=== PATIENT | female | born 1990 | race Caucasian/White ===

== ENCOUNTER 2016-08-18 13:16 | Inpatient (IN) | payer OTHER ==
[~2016-08-18] VITALS: Ht 165.1 cm; Wt 55.4 kg
[~2016-08-18 13:16] MED LIST: EFFSR150 PO; LEVO88TA PO; QUET-205 PO
[2016-08-18] MEDS ORDERED: CALC-51 PO (13:59)
[2016-08-18] MEDS ORDERED: VENL150C56 PO (13:59)
[2016-08-18] MEDS ORDERED: CHOL1000 PO (13:59)
[2016-08-18] MEDS ORDERED: LEVO112T4 PO (13:59)
[2016-08-18] MEDS ORDERED: QUET1TAB34 PO (13:59)
[2016-08-18] MEDS ORDERED: VENL75CA PO (13:59)
[2016-08-18 14:00] LABS: BASO % 0.7 %; BASO ABS # 0.07 K/uL (0-0.2); COMPLETE YES; EOS % 0.3 %; HEMATOCRIT 39.1 % (37-47); IG% 0.2 %; LYMPH % 16.1 %; LYMPH ABS # 1.51 K/uL (1.2-3.4); MEAN CELL VOLUME 91.1 fL (80-100); MEAN CORPUSCULAR HEMOGLOBIN 31.2 pg (25-34); MEAN CORPUSCULAR HGB CONC 34.3 g/dl (32-36); MEAN PLATELET VOLUME 10.2 fL (7.4-10.4); MONO % 7.8 %; NEUT % 74.9 %; PLATELET COUNT 244 K/uL (130-400); RED BLOOD COUNT 4.29 M/uL (4.2-5.4); WHITE BLOOD COUNT 9.36 K/uL (4.8-10.8)
[2016-08-18 14:00] LABS: URINE APPEARANCE CLEAR (CLEAR); URINE BILIRUBIN NEG (NEG); URINE COLOR DK YELLOW; URINE EPITHELIAL CELL AUTO >30 /lpf (0-5); URINE NITRITE NEG (NEG); URINE PH 6.5 (4.5-7.5); URINE SPECIFIC GRAVITY 1.025 (1.000-1.030); UROBILINOGEN NEG (NEG)
[2016-08-18 14:05] LABS: MANUAL MICROSCOPIC REQUIRED? NO; REVIEW REQ? YES
[2016-08-18 14:21] LABS: BENZODIAZEPINE, URINE NEG (NEG); COCAINE,URINE NEG (NEG); PHENCYCLIDINE, URINE NEG (NEG)
[2016-08-18 14:22] LABS: CALCIUM 7.2 mg/dl (8.5-10.1); CREATININE 0.72 mg/dl (0.60-1.20); POTASSIUM 3.4 mmol/L (3.5-5.1)
[2016-08-18 14:32] LABS: THYROID STIMULATING HORMONE 0.372 uIu/ml (0.300-4.500)
--- NOTE | 2016-08-18 14:54 | EMERGENCY ROOM VISIT NOTE ---
History Report prepared by Stephanie: Wilma Fung Under the Supervision of: Dr. Anderson Flores D.O. First contact with patient: 13:21 Chief Complaint: ANXIETY Stated Complaint: ANXIETY, DEPRESSED History of Present Illness The patient is a 26 year old female who presents to the Emergency Room with complaints of worsening anxiety that started one month ago. The patient states that she has a history of anxiety, PTSD, and depression. She states that she is struggling with both anxiety and depression right now and thinks that she needs her medications to be changed. She is currently on Seroquel and Effexor. She states that the Effexor causes her to have vivid nightmares. The patient has been on Effexor for about 5 years now. The patient states that she isn't able to get in to see her doctor until next Thursday. She has been experiencing thoughts of self-harm, but she does not have a plan. She states that she feels like if she it would be easier, but she does not think that she would actually commit suicide. The patient has experienced these symptoms in the past and she has also been admitted to the hospital previously for these symptoms. She states that she attempted to harm herself years ago. The patient denies any auditory or visual hallucinations as well as homicidal ideations. She follows with Dr. Jacobson - [facility] for her psychiatric issues because there is a problem between psychiatrists and her insurance. The patient states that she has been experiencing generalized body aches because she is constantly laying down. 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 The neck, shoulder, and back pain are all worse when she moves and they all started a few weeks ago. She states that the pain makes her more depressed. The patient denies any recent trauma that could be causing her pain. She adds that she experiences diarrhea with panic attacks. The patient also states that she is dizzy because she has been unable to eat. Pt denies headache, change in vision, fevers, chest pain, shortness of breath, nausea, vomiting, abdominal pain, and pain with urination. The patient's last normal menstrual period was 3.5 weeks ago. Source of History: patient Onset: one month ago Position: other (global) Quality: other (anxiety) Timing: worsening Associated Symptoms: + back pain, + diarrhea, + neck pain, No SOB, No abdominal pain, No chest pain, No fevers, No headache, No nausea, No urinary symptoms (pain with urination), No vomiting Note: shoulder pain, generalized body aches, dizziness, no auditory or visual hallucinations, no homicidal ideations, no change in vision Review of Systems See HPI for pertinent positives & negatives. A total of 10 systems reviewed and were otherwise negative. Past Medical & Surgical Medical Problems: (1) HTN (hypertension) (2) Schizoaffective disorder Surgical Problems: (1) Status post removal of thyroid nodule Family History Diabetes mellitus FH: cancer FH: gallbladder disease Hypertension Social History Smoking Status: Current Every Day Smoker Alcohol Use: none Housing Status: lives with family Occupation Status: employed Current/Historical Medications Scheduled Calcium Carbonate-Vitamin D (Calcium), 1 TAB PO TID Cholecalciferol (Vitamin D3), 1,000 UNITS PO DAILY Levothyroxine Sodium (Levothyroxine Sodium), 112 MCG PO DAILY Quetiapine Fumarate (Seroquel), 100 MG PO HS Venlafaxine Hcl (Effexor Extended Rel), 150 MG PO DAILY Venlafaxine Hcl (Effexor Xr), 75 MG PO DAILY Allergies Coded Allergies: Sulfa Drugs (Verified Allergy, SWELLING & FLUSHING, 08/27/11) Physical Exam Vital Signs Date Time Temp Pulse Resp B/P Pulse Ox O2 Delivery O2 Flow Rate FiO2 08/18/16 15:00 78 16 118/79 97 Room Air 08/18/16 13:18 36.8 110 18 127/80 98 Room Air Physical Exam GENERAL: alert, sitting up in bed, well appearing, well nourished, no acute distress, non-toxic EYE EXAM: normal conjunctiva OROPHARYNX: no exudate, no erythema, lips, buccal mucosa, and tongue normal and mucous membranes are moist NECK: supple, no nuchal rigidity, no adenopathy, non-tender LUNGS: Clear to auscultation. Normal chest wall mechanics HEART: Tachycardic, no murmurs, S1 normal and S2 normal ABDOMEN: abdomen soft, non-tender, normo-active bowel sounds, no masses, no rebound or guarding. BACK: Back is symmetrical on inspection and there is no deformity, reproducible tenderness in the lower cervical/upper thoracic paraspinal region, no midline tenderness, no CVA tenderness. SKIN: no rashes and no bruising UPPER EXTREMITIES: upper extremities are grossly normal. LOWER EXTREMITIES: No pitting edema. NEURO EXAM: Normal sensorium, cranial nerves II-XII grossly intact, normal speech, no gross weakness of arms, no gross weakness of legs. PSYCH: Denies suicidal plan, denies homicidal ideations, denies auditory and visual hallucinations. Medical Decision & Procedures Laboratory Results 08/18/16 13:45 Red Blood Count 4.29, Mean Corpuscular Volume 91.1, Mean Corpuscular Hemoglobin 31.2, Mean Corpuscular Hemoglobin Concent 34.3, Mean Platelet Volume 10.2, Neutrophils (%) (Auto) 74.9, Lymphocytes (%) (Auto) 16.1, Monocytes (%) (Auto) 7.8, Eosinophils (%) (Auto) 0.3, Basophils (%) (Auto) 0.7, Neutrophils # (Auto) 7.00, Lymphocytes # (Auto) 1.51, Monocytes # (Auto) 0.73, Eosinophils # (Auto) 0.03, Basophils # (Auto) 0.07 08/18/16 13:45 Test 08/18/16 13:34 08/18/16 13:45 Urine Color DK YELLOW Urine Appearance CLEAR (CLEAR) Urine pH 6.5 (4.5-7.5) Urine Specific [place] 1.025 (1.000-1.030) Urine Protein NEG (NEG) Urine Glucose (UA) NEG (NEG) Urine Ketones 3+ (NEG) Urine Occult Blood NEG (NEG) Urine Nitrite NEG (NEG) Urine Bilirubin NEG (NEG) Urine Urobilinogen NEG (NEG) Urine Leukocyte Esterase SMALL (NEG) Urine WBC (Auto) 5-10 /hpf (0-5) Urine RBC (Auto) 0-4 /hpf (0-4) Urine Hyaline Casts (Auto) 5-10 /lpf (0-5) Urine Epithelial Cells (Auto) >30 /lpf (0-5) Urine Bacteria (Auto) 1+ (NEG) Urine Opiates Screen NEG (NEG) Urine Methadone, Qualitative NEG (NEG) Urine Barbiturates NEG (NEG) Urine Phencyclidine (PCP) Level NEG (NEG) Ur Amphetamine/Methamphetamine NEG (NEG) MDMA (Ecstasy) Screen NEG (NEG) Urine Benzodiazepines Screen NEG (NEG) Urine Cocaine Metabolite NEG (NEG) Urine Marijuana (THC) NEG (NEG) White Blood Count 9.36 K/uL (4.8-10.8) Red Blood Count 4.29 M/uL (4.2-5.4) Hemoglobin 13.4 g/dL (12.0-16.0) Hematocrit 39.1 % (37-47) Mean Corpuscular Volume 91.1 fL (80-100) Mean Corpuscular Hemoglobin 31.2 pg (25-34) Mean Corpuscular Hemoglobin Concent 34.3 g/dl (32-36) Platelet Count 244 K/uL (130-400) Mean Platelet Volume 10.2 fL (7.4-10.4) Neutrophils (%) (Auto) 74.9 % Lymphocytes (%) (Auto) 16.1 % Monocytes (%) (Auto) 7.8 % Eosinophils (%) (Auto) 0.3 % Basophils (%) (Auto) 0.7 % Neutrophils # (Auto) 7.00 K/uL (1.4-6.5) Lymphocytes # (Auto) 1.51 K/uL (1.2-3.4) Monocytes # (Auto) 0.73 K/uL (0.11-0.59) Eosinophils # (Auto) 0.03 K/uL (0-0.5) Basophils # (Auto) 0.07 K/uL (0-0.2) RDW Standard Deviation 41.2 fL (36.4-46.3) RDW Coefficient of Variation 12.4 % (11.5-14.5) Immature Granulocyte % (Auto) 0.2 % Immature Granulocyte # (Auto) 0.02 K/uL (0.00-0.02) Anion Gap 9.0 mmol/L (3-11) Est Creatinine Clear Calc Drug Dose 103.4 ml/min Estimated GFR () 133.0 Estimated GFR (Non- 114.8 BUN/Creatinine Ratio 10.0 (10-20) Calcium Level 7.2 mg/dl (8.5-10.1) Total Bilirubin 0.5 mg/dl (0.2-1) Direct Bilirubin 0.1 mg/dl (0-0.2) Aspartate Amino Transf (AST/SGOT) 14 U/L (15-37) Alanine Aminotransferase (ALT/SGPT) 19 U/L (12-78) Alkaline Phosphatase 54 U/L (45-117) Total Protein 7.4 gm/dl (6.4-8.2) Albumin 4.6 gm/dl (3.4-5.0) Thyroid Stimulating Hormone (TSH) 0.372 uIu/ml (0.300-4.500) Ethyl Alcohol mg/dL < 3.0 mg/dl (0-3) Laboratory results per my review. ED Course ED COURSE: Vital signs were reviewed and showed tachycardia. The patients medical record was reviewed The above diagnostic studies were performed and reviewed. ED treatments and interventions as stated above. 1324: The patient was evaluated in room A7. A complete history and physical examination was performed. 1439: The patient is being evaluated by 3 Andrea for admission. Medical Decision Differential diagnoses includes but is not limited to mood disorder, infection, hypoglycemia, electrolyte abnormalities, cardiac sources, intracerebral event, toxicologic, neurologic. Patient is a 26-year-old female who presents the ER for severe depression and anxiety. She notes that this has been worsening over the past couple days. She has had thoughts of wanting to harm herself but no clear plan at this time. She denies any homicidal ideations. No auditory or visual hallucinations. She does admit that she has been very anxious and this in combination with her depression has been worsening her symptoms. She missed taking Seroquel and Effexor. She has not missed any doses. She has been admitted in the past previously for suicidal ideations. Patient is agreeable to come in was evaluated by Natasha from our psychiatric care management team. She recommends inpatient treatment for which I agree. CBC along with BMP, LFTs and TSH were unremarkable. UA was contaminated with multiple epithelial cells. Will not treat at this time. Patient will be evaluated by 3 S. and likely admitted for further workup of her depression and anxiety. Impression Primary Impression: Mood disorder Additional Impression: Depression Scribe Attestation The scribe's documentation has been prepared under my direction and personally reviewed by me in its entirety. I confirm that the note above accurately reflects all work, treatment, procedures, and medical decision making performed by me. Departure Information Dispostion [facility] ([facility]) Referrals Aftab Jacobson M.D. (PCP) Patient Instructions [facility] Problem Qualifiers Additional Impression: Depression Depression Type: unspecified Qualified Codes: F32.9 - Major depressive disorder, single episode, unspecified
[2016-08-18] MEDS ORDERED: CALC500C70 PO (16:24)
[2016-08-18] MEDS ORDERED: SODIUM CHLORIDE 0.65% NA SOLN 45 ML (OCEAN) PRN (16:45)
[2016-08-18] MEDS ORDERED: ALUMINUM/MAGNESIUM SUSP 30 ML UDC PO PRN (16:45)
[2016-08-18] MEDS ORDERED: ACETAMINOPHEN 325 MG TAB PO PRN (16:45)
[2016-08-18] MEDS ORDERED: MAGNESIUM HYDROXIDE SUSP 30 ML UDC PO PRN (16:45)
[2016-08-18] MEDS ORDERED: BISMUTH SUBSALICYLATE PER ML OMNICELL CHARGE PO PRN (16:45)
[2016-08-18] MEDS ORDERED: hydrOXYzine HCL 25 MG TAB PO PRN ×2 (16:45)
[2016-08-18 16:55] VITALS: O2SAT 97
[2016-08-18] MEDS ORDERED: NICOTINE POLACRILEX 2 MG GUM MT PRN (17:00)
[2016-08-18] MEDS ORDERED: NICOTINE 7 MG/24 HR TDSY TD PRN (17:00)
[2016-08-18 19:56] VITALS: BP 112/75; PULSE 103; TEMP 36.9; Ht 165.1 cm; Wt 55.4 kg
[2016-08-18] MEDS ORDERED: CALCIUM 600MG + VIT D 400 IU TAB PO SCH (21:00)
[2016-08-18] MEDS: QUETIAPINE FUMARATE 100 MG TAB PO SCH (22:22)
[2016-08-19 06:55] VITALS: BP_SYST 101; BP_SYST 99; BP_DIAS 65; BP_DIAS 70; PULSE 79; PULSE 87; TEMP 36.8
[2016-08-19] MEDS: LEVOTHYROXINE 112 MCG TAB PO SCH (08:42)
[2016-08-19] MEDS ORDERED: VENLAFAXINE HCL XR 150 MG CAPXR PO SCH (09:00)
[2016-08-19] MEDS ORDERED: VENLAFAXINE HCL XR 75 MG CAPXR PO SCH ×2 (09:00→12:00)
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
[2016-08-19] MEDS: CALCIUM 600MG + VIT D 400 IU TAB PO SCH ×3 (11:42→23:01)
[2016-08-19] MEDS: VENLAFAXINE HCL XR 150 MG CAPXR PO SCH (11:43)
[2016-08-19] MEDS ORDERED: QUETIAPINE FUMARATE 25 MG TAB PO PRN (11:45)
[2016-08-19] MEDS: ESCITALOPRAM OXALATE 10 MG TAB PO SCH (23:01)
[2016-08-19] MEDS: QUETIAPINE FUMARATE 100 MG TAB PO SCH (23:01)
[2016-08-20 06:59] VITALS: BP_SYST 104; BP_SYST 119; BP_DIAS 71; BP_DIAS 84; PULSE 92; PULSE 97; TEMP 36.6
[2016-08-20] MEDS: LEVOTHYROXINE 112 MCG TAB PO SCH (08:26)
[2016-08-20 09:00] LABS: CHOLESTEROL/HDL RATIO 3.1
[2016-08-20] MEDS: CALCIUM 600MG + VIT D 400 IU TAB PO SCH ×3 (11:53→20:46)
[2016-08-20] MEDS: VENLAFAXINE HCL XR 150 MG CAPXR PO SCH (11:53)
--- NOTE | 2016-08-20 12:32 | Psychiatric Progress Notes ---
Progress Note Date of Service August 20, 2016. Interval History Ayana Nails is a 26-year-old female who currently lives in [place] with her boyfriend and his parents, has a history of schizoaffective disorder bipolar type, anxiety not otherwise specified, and dissociative disorder, and presented to the emergency room with worsening mood, anxiety, and suicidal ideation and was admitted voluntarily. Chief Complaint "Better". Subjective Patient was seen & assessed interval progress reviewed with Treatment Team. Staff report she is adjusting to the unit, going to groups, and participating appropriately. She says she is feeling better than on admission, feels more optimistic, is trying to "take everything a day at a time, deal with things as they come, try not to anticipate it and then have a panic attack." She says anxiety is her primary problem, and her mood got depressed because of how bad her anxiety was. 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 She denies any problems with the dose decrease to her Effexor, but remains very anxious about tapering off it, wanting to do a very slow taper. She slept well, and reports good appetite. Denies side effects to meds. Sleep Information Total Hours of Sleep: 6.50 Meal Information Percent of Breakfast Consumed: 100 Percent of Lunch Consumed: 90 Percent of Dinner Consumed: 100 Mental Status Exam During interview pt is: alert and oriented, cooperative Appearance: appropriately dressed, appropriately groomed, appeared stated age, other (thin) Eye contact is: good Motor behavior is: steady gait & station, no abnormal motor movements Speech: normal in rate, rhythm & volume Affect: mood congruent, other (depressed and anxious, but improved from yesterday, less intense) Mood is: other ("better") Thought process: goal directed Thought content: reality based without delusions Suicidal thought are: denied Homicidal thoughts are: denied Hallucinations: denies auditory, denies visual Cognition: memory grossly intact, attention grossly intact, language grossly intact Intelligence estimated to be: average Insight: fair Judgement: fair Impression 26-year-old female with a history of schizoaffective disorder bipolar type, dissociative disorder, cannabis and abuse, and anxiety disorder who presents with worsening anxiety and mood resulting in suicidal ideation. She is admitted voluntarily. She would benefit from medication adjustments and exploring whether her thyroid medication may be playing a role in increased anxiety and panic. Diagnoses have been reviewed, and she appears to meet criteria for MDD, panic and RUBIN at this time. We are switching to another antidepressant as her current medication has not been effective recently. She would also benefit from outpatient follow-up with a psychiatrist, and increasing her therapy sessions to at least weekly. Plan (1) Panic disorder - Discuss treatment options for addressing anxiety and depression, including increasing venlafaxine XR to 300 mg daily, cross tapering to a different antidepressant, or augmentation. She opted for a cross taper to escitalopram, which she has never tried before. She is very anxious about coming off of the venlafaxine XR, and we discussed discontinuation syndrome and that we would slow the taper down if she experiences any symptoms. We will start by decreasing her dose to 150 mg daily Misty C she takes it at noon). We'll start escitalopram 5 mg daily at bedtime tonight. Reviewed the risks, benefits , and common side effects, and she agreed. - Offer quetiapine 25mg prn for panic, as well as hydroxyzine (thinks hydroxyzine was ineffective). - Coordinate with outpatient providers, including therapist and recommended increasing appointments to weekly. - Refer for outpatient psychiatrist to manage medications. - Coordinate care with Dr. Jacobson, her PCP. - Family meeting with boyfriend. - Attend groups and therapy here, work on healthy coping skills and discharge safety plan. 08/20 - Tolerating decrease in Effexor XR well and wants to stay at this dose for now , fearing discontinuation syndrome. Continue escitalopram 5mg daily, continue. - Staff contacted Dr. Jacobson yesterday to review recent labs and ? adjust dose of levothyroxine. Awaiting return call. - Family meeting with boyfriend. - Wants to return to work Thursday. - Rec increasing therapy to weekly or every other week. - Refer to outpatient psychiatrist. (2) Depression -Reviewed records, and question diagnosis of schizoaffective disorder bipolar type. Patient denies any symptoms of sun or psychosis in years, and some of the "paranoia" she had previously reported could be seen in the context of severe anxiety. In addition, she has been stable for years on venlafaxine XR without a mood stabilizer, as has only been on low-dose quetiapine, which supports a unipolar depression. -See plan above. -Continue quetiapine 100 mg daily at bedtime, and order fasting lipid profile and glucose for tomorrow morning for monitoring on an atypical antipsychotic, as she states she has not had these done in years. (3) Nicotine dependence Recognizes that smoking is worsening anxiety, and has cut back to 2 cigs/daily, and is interested in quitting. Will offer patch and gum as needed here, and can continue with OP prescription if needed. Can also refer to the quit line. (4) Hypothyroidism TSH low and per patient free T4 was high last week at PCP's office, but hasn't followed up with Dr. Jacobson yet. Will call his office to determine if levothyroxine 112mg should be decreased. This may also be contributing to anxiety. (5) Unprotected sex Patient is having unprotected sex, and does not desire to become at this time. She has not been taking oral contraceptives due to poor compliance with pills. Discussed concerns with unplanned and potential for destabilizing mood and anxiety further. We will refer her to her [employer] for discussion of other contraception options, such as the NuvaRing, implant, or Depo-Provera shot. In the interim, she should use barrier protection such as condoms. Discharge / Aftercare Planning Primary Care Physician: Name: Dr Mendez/Radha Therapist: Name: Machelle Liao Date of Appointment: August 18, 2016 Visit Code E&M Code: 60511 Inventory Assets Strengths: "I'm very caring, compassionate, and kind. Risk Factors Assessment : Yes /single/: No Higher / Fall in social status: No Health problems: Yes Mental Health Diagnoses: Yes Substance use disorders: Yes Previous attempt: Yes Previous attempt;highly lethal: No Family history of suicide: No Previous psychiatric stay: Yes Hopelessness: Yes Smoker: Yes Protective Factors Assessment Gnosticism beliefs: Yes : No Responsible for young children: No Employed: Yes Stable relationships: Yes Supportive family: Yes Good rapport with provider: Yes Data Vital Signs Last 24 Hrs: Date Time Temp Pulse Resp B/P Pulse Ox O2 Delivery O2 Flow Rate FiO2 08/20/16 06:59 36.6 92 16 119/84 97 104/71 Meds Administered Last 24 Hrs: Meds Administered (Past 24Hrs) Medications (Trade) Dose Ordered Sig/Lory Route Start Time Stop Time Status Last Admin Dose Admin Calcium/Vitamin D (Caltrate Plus Tab) 1 tab TID PO 08/18/16 21:00 08/19/16 11:12 DC 08/18/16 22:22 1 TAB Levothyroxine Sodium (Synthroid Tab) 112 mcg DAILYBB PO 08/19/16 08:00 09/18/16 07:59 08/20/16 08:26 112 MCG Quetiapine Fumarate (seroQUEL TAB) 100 mg HS PO 08/18/16 21:00 09/17/16 20:59 08/19/16 23:01 100 MG Venlafaxine HCl (effeXOR EXTENDED REL CAP) 150 mg DAILY@1200 PO 08/19/16 12:00 09/18/16 11:59 08/20/16 11:53 150 MG Calcium/Vitamin D (Caltrate Plus Tab) 1 tab TID@1200,1600,2100 PO 08/19/16 12:00 09/18/16 11:59 08/20/16 11:53 1 TAB Escitalopram Oxalate (Lexapro Tab) 5 mg HS PO 08/19/16 22:00 09/18/16 21:59 08/19/16 23:01 5 MG Lab Results Last 24 Hrs: Last 24 Hours Test 08/20/16 08:20 Fasting Glucose 92 mg/dl Triglycerides Level 74 mg/dl Cholesterol Level 131 mg/dl HDL Cholesterol 42 mg/dl LDL Cholesterol, Calculated 74 mg/dl VLDL Cholesterol, Calculated 15 mg/dl Cholesterol/HDL Ratio 3.1 Problem Qualifiers (1) Depression: Depression Type: unspecified Qualified Codes: F32.9 - Major depressive disorder, single episode, unspecified (2) Nicotine dependence: Nicotine product type: cigarettes
--- NOTE | 2016-08-20 22:47 | Medical Student: BHU Only ---
Psychiatric Evaluation Date of Service: August 19, 2016. IDENTIFYING DATA: Ayana Nails is a 26-year-old female who currently lives in [place], [place] with her boyfriend and his family. Ayana Nails was admitted to the [facility] on a 201 voluntary commitment. CHIEF COMPLAINT: "I thought about driving into a tree." HISTORY OF PRESENT ILLNESS: Ayana Nails is a 26-year-old female with a history of anxiety and depression who presents to the hospital with increasing anxiety and suicidal ideation. She decided coming to the Emergency Room after she had thoughts of driving her car into a tree and because her symptoms of depression and panic attacks were getting in the way of daily life. Ms. 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 She also reported having daily nightmares that are vivid and very scary for her. She said that when she wakes up, it's hard for her to decipher what's real. In addition, Ms. Nails became tearful when she said that " everything scares me." When asked about triggers, she described how a tree falling and nearly hitting her house terrified her. She said she didn't understand how that didn't affect the other people in her home the same way it affected her. She also becomes extremely anxious when thinking about traveling and watching the news, especially when discussing the president. These panic attacks last about 20 minutes and have gotten in the way of her daily life; she said that she wasn't able to spend Easter dinner with her family because she was having a panic attack. When having an attack, Ms. Nails describes feeling dizzy/light-headed, feels that reality isn't real, and feels like she is dying and might have to come to the hospital. These have been happening almost every day, and after each episode, she says that she will have diarrhea and be very fatigued. These episodes began about 3 years ago after her thyroid surgery, but have increased in frequency over the last month. She says she is always nervous about having another attack and that her boyfriend doesn't understand them. However, these attacks have not prohibited her from driving or doing her regular shopping. She denied feelings of paranoia but endorsed fearfulness in general. These feelings escalated to her having thoughts of driving her car into a tree yesterday on the way to meeting with her therapist. While she does have a history of self harm (cutting herself as a "pain reliever") about 5-6 years ago, she said that she would never take her own life and has not engaged in self-harm recently. She said that while she does enjoy her family, boyfriend , cat, and occupation, it has been "harder to enjoy those things right now." Ms. Nails also said that she has lost about 5 pounds over the last month, has decreased appetite, and has decreased her cigarette smoking down to 2 cigarettes per day because she has found that smoking increases her heart rate which scares her because she expects and impending panic attack. Ms. Nails became very upset and tearful again when she said that she was disappointed to be back in the hospital again because she had been doing so well for a few years until now. Risk of violence to self within the last 6 months: no Risk of violence to others within the last 6 months: no CURRENT MEDICATIONS: Home Meds and Scripts Medications Dose Route/Sig Max Daily Dose Days Date Category Os-Deven 500 Plus D (Calcium/Vitamin D) Tab 1 Tab PO TID 08/18/16 Reported Effexor Xr (Venlafaxine Hcl) 75 Mg Cap 75 Mg PO DAILY 08/18/16 Reported Effexor Extended Rel (Venlafaxine Hcl) 150 Mg Cap 150 Mg PO DAILY 08/18/16 Reported Seroquel (Quetiapine Fumarate) 100 Mg Tab 100 Mg PO HS 08/18/16 Reported Levothyroxine Sodium 112 Mcg Tab 112 Mcg PO DAILY 08/18/16 Reported PAST PSYCHIATRIC HISTORY: Current outpatient mental health treatment: Dr. Jacobson (PCP), Machelle Liao ( therapist). Pt said she sees her PCP for psychiatric care because her insurance doesn't cover "good" psychiatric providers. Prior outpatient mental health treatment: Dr. Rubio, Dr. Epstein Past diagnoses: schizoaffective disorder bipolar type, dissociative disorder, anxiety not otherwise specified. Prior psychiatric hospitalizations: [facility] on 3 occasions, [facility] on 4 occasions Prior medication trials: many med trials but does not recall specific responses. Prior suicide attempts: yes Access to weapons: boyfriend has guns in the home, but pt claims to not know where he keeps them PAST MEDICAL HISTORY: Current primary care practitioner is Dr. Jacobson. medical history: HTN, hyperthyroidism surgical history: thyroidectomy in 2014 LMP: 3.5 weeks ago history of head injury: unknown history of seizure: unknown history of iv drug use: no ALLERGIES: sulfa antibiotics FAMILY HISTORY: Mental Health: depression in mother, father, brother, and sister. Substance Abuse: father; alcoholism Suicide: no Medical history: gallbladder disease, cancer, diabetes mellitus SUBSTANCE USE HISTORY: Tobacco use hx: currently smokes 2 cigarettes per day, but was smoking 1/2 pack per day for years prior. Has cut down because smoking makes her even more anxious. Caffeine use hx: unknown Used to smoke marijuana every day "all day long" before her first panic attack. Has not smoked marijuana since then. Pt reports feeling 'mental withdrawal' after cessation. PERSONAL HISTORY: Living: Patient currently lives in [place], [place] with her boyfriend and his family. She reported having poor relationship with her father years ago which was aggressive, but is now on good terms with him. 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 CARDIOVASCULAR: heart racing PSYCHIATRIC: anxious, disappointed in herself Labs, studies, imaging: Test 08/18/16 13:34 08/18/16 13:45 08/20/16 08:20 Urine Color DK YELLOW Urine Appearance CLEAR Urine pH 6.5 Urine Specific [place] 1.025 Urine Protein NEG Urine Glucose (UA) NEG Urine Ketones 3+ Urine Occult Blood NEG Urine Nitrite NEG Urine Bilirubin NEG Urine Urobilinogen NEG Urine Leukocyte Esterase SMALL Urine WBC (Auto) 5-10 Urine RBC (Auto) 0-4 Urine Hyaline Casts (Auto) 5-10 Urine Epithelial Cells (Auto) >30 Urine Bacteria (Auto) 1+ Urine Opiates Screen NEG Urine Methadone, Qualitative NEG Urine Barbiturates NEG Urine Phencyclidine (PCP) Level NEG Ur Amphetamine/Methamphetamine NEG MDMA (Ecstasy) Screen NEG Urine Benzodiazepines Screen NEG Urine Cocaine Metabolite NEG Urine Marijuana (THC) NEG White Blood Count 9.36 Red Blood Count 4.29 Hemoglobin 13.4 Hematocrit 39.1 Mean Corpuscular Volume 91.1 Mean Corpuscular Hemoglobin 31.2 Mean Corpuscular Hemoglobin Concent 34.3 Platelet Count 244 Mean Platelet Volume 10.2 Neutrophils (%) (Auto) 74.9 Lymphocytes (%) (Auto) 16.1 Monocytes (%) (Auto) 7.8 Eosinophils (%) (Auto) 0.3 Basophils (%) (Auto) 0.7 Neutrophils # (Auto) 7.00 Lymphocytes # (Auto) 1.51 Monocytes # (Auto) 0.73 Eosinophils # (Auto) 0.03 Basophils # (Auto) 0.07 RDW Standard Deviation 41.2 RDW Coefficient of Variation 12.4 Immature Granulocyte % (Auto) 0.2 Immature Granulocyte # (Auto) 0.02 Urine Test NEG Sodium Level 141 Potassium Level 3.4 Chloride Level 107 Carbon Dioxide Level 25 Anion Gap 9.0 Blood Urea Nitrogen 7 Creatinine 0.72 Est Creatinine Clear Calc Drug Dose 103.4 Estimated GFR () 133.0 Estimated GFR (Non- 114.8 BUN/Creatinine Ratio 10.0 POC Glucose 104 Random Glucose 92 Calcium Level 7.2 Total Bilirubin 0.5 Direct Bilirubin 0.1 Aspartate Amino Transferase (AST) 14 Alanine Aminotransferase (ALT) 19 Alkaline Phosphatase 54 Total Protein 7.4 Albumin 4.6 Thyroid Stimulating Hormone (TSH) 0.372 Ethyl Alcohol mg/dL < 3.0 Fasting Glucose 92 Triglycerides Level 74 Cholesterol Level 131 HDL Cholesterol 42 LDL Cholesterol, Calculated 74 VLDL Cholesterol, Calculated 15 Cholesterol/HDL Ratio 3.1 PHYSICAL EXAM: MENTAL STATUS EXAM: Appearance is that of a healthy young female who is casually dressed. Eye contact is appropriate. She is cooperative and pleasant but cries at times. Motor behavior is grossly normal. Speech: normal rate, rhythm, and volume. No abnormal intonation. Mood: anxious Affect: congruently dysthymic. labile. Thought process: Linear, logical, and goal-directed. No perseverations. Thought content: Denies current SI, HI, or obsessions. Fearful of "everything." Perception: Denied hallucinations. No evidence of delusions. Cognition: Patient is alert and oriented to person, place, and time. Memory intact. Insight and judgment are fair. INVENTORY OF ASSETS: * strengths: "caring, compassionate, loving." "tries to be her best self." "usually funny and have a good personality." Described how her mental health problems have made her more compassionate because you "never know what someone is going through." * resources: boyfriend, boyfriend's family, pt's own family. * needs: Learn how to better control and cope with panic attacks. RISK ASSESSMENT: * Risk factors: , Health Problems, Mental Health Diagnoses ( depression and anxiety), Substance Use Disorders (tobacco), Previous attempts, Previous psychiatric hospitalization. * Protective factors: Employed, Stable relationships, Supportive family. DIAGNOSTIC IMPRESSION: This is a 26-year-old female with a diagnosis of anxiety and depression who presents to the hospital with worsening of her symptoms and suicidal ideation. Because of her lab results, hyperthyroidism secondary to levothyroxine is a possible etiology and should be explored appropriately. The most likely diagnosis is Panic Disorder with 4+ of the required symptoms including palpitations, dizziness, abdominal distress, derealization, and fear of dying with constant worry about another attack and avoidance behaviors. The Panic Disorder appears to co-occur with major depressive disorder. Features of MDD in this patient include depressed mood for greater than 2 weeks with poor appetite , fatigue, and poor concentration. The patient believes that depression is secondary to the inability to control her panic attacks. RECOMMENDATIONS: 1. Panic Disorder & Depression - Patient will attend all groups and attend therapeutic programming. Q15 checks for her safety by nursing. Patient may have roommate. - We discussed the option of performing a cross taper of Venlafaxine to Escitalopram to see if this can better control her anxiety. The patient was very fearful of this and began crying at the thought of going off of Venlafaxine , but ultimately agreed. - Introduce Escitalopram at 5 mg PO daily for 7 days before increasing to 10 mg daily. - Continue Venlafaxine XR 150 mg PO daily. D/C Venlafaxine 75 mg PO daily. - Continue Quetiapine according to current regimen. - Provide Hydroxyzine at 50 mg PO PRN for panic attacks. - Connect patient with psychiatric outpatient care as her symptoms appear to be too complex to be managed by a PCP. 2. Hypothyroidism - Decreased TSH was reviewed with patient. It was explained that this could mean that her thyroid is overactive which may lead to a decrease in her current dose of 112 mcg of levothyroxine daily. - Will contact her PCP, Dr. Jacobson, to review patient's most recent lab results which showed an increased free T4 level. Will solicit his judgment on possibly decreasing her current dose to potentially mitigate her anxiety. - 1899 - Dr. Jacobson returned my phone call, and I updated him on the status of our patient. He said he would review the patient's labs and contact the unit to discuss further.
[2016-08-20] MEDS: ESCITALOPRAM OXALATE 10 MG TAB PO SCH (22:57)
[2016-08-20] MEDS: QUETIAPINE FUMARATE 100 MG TAB PO SCH (22:57)
[2016-08-21 07:04] VITALS: BP_SYST 100; BP_SYST 94; BP_DIAS 67; BP_DIAS 68; PULSE 76; PULSE 82; TEMP 36.8
[2016-08-21] MEDS: LEVOTHYROXINE 112 MCG TAB PO SCH (08:08)
--- NOTE | 2016-08-21 10:48 | Psychiatric Progress Notes ---
Progress Note Date of Service August 21, 2016. Interval History Ayana Nails is a 26-year-old female who currently lives in [place] with her boyfriend and his parents, has a history of schizoaffective disorder bipolar type, anxiety not otherwise specified, and dissociative disorder, and presented to the emergency room with worsening mood, anxiety, and suicidal ideation and was admitted voluntarily. Chief Complaint "Pretty good". Subjective Patient was seen & assessed interval progress reviewed. She is going to groups and participating in treatment. She had a family meeting with her boyfriend yesterday, and they reviewed information about panic disorder and how it affects the patient. He agreed to secure guns so that she would not have access to them. Today, the patient states that her mood has improved since admission, but she continues to have a lot of anxiety, which is worse in the morning. She feels better after she gets out of bed and goes to group. She continues to have vivid dreams at night, which bother her, but is sleeping through the night. She feels tired this morning. She is agreeable to decreasing her venlafaxine XR dose again today, and would like instructions for how to continue the cross taper after she leaves the hospital. She would also like a prescription for hydroxyzine as needed for anxiety at the time of discharge, stating that she thinks she will feel better just knowing she has something to take if needed. She is hoping to be ready to be discharged over the weekend, noting that she is very anxious thinking about going home, and worries that she will get better but that the suicidal thoughts will return. She asks multiple appropriate questions about indications, how long it will take to see improvements, and ways to manage her anxiety. Sleep Information Total Hours of Sleep: 7.00 Meal Information Percent of Breakfast Consumed: 100 Percent of Lunch Consumed: 100 Percent of Dinner Consumed: 100 Mental Status Exam During interview pt is: alert and oriented, cooperative Appearance: appropriately dressed, appropriately groomed, appeared stated age Eye contact is: good Motor behavior is: steady gait & station, no abnormal motor movements Speech: normal in rate, rhythm & volume Affect: mood congruent, tearful (although duration is shorter than previously and her stay), other (depressed and anxious, but improving) Mood is: other ("pretty good") Thought process: goal directed Thought content: reality based without delusions Suicidal thought are: denied Homicidal thoughts are: denied Hallucinations: denies auditory, denies visual Cognition: memory grossly intact, attention grossly intact, language grossly intact Intelligence estimated to be: average Insight: fair Judgement: fair Impression 26-year-old female with a history of schizoaffective disorder bipolar type, dissociative disorder, cannabis and abuse, and anxiety disorder who presents with worsening anxiety and mood resulting in suicidal ideation. She is admitted voluntarily. She would benefit from medication adjustments and exploring whether her thyroid medication may be playing a role in increased anxiety and panic. Diagnoses have been reviewed, and she appears to meet criteria for MDD, panic and RUBIN at this time. We are switching to another antidepressant as her current medication has not been effective recently. She would also benefit from outpatient follow-up with a psychiatrist, and increasing her therapy sessions to at least weekly. Plan (1) Panic disorder - Discuss treatment options for addressing anxiety and depression, including increasing venlafaxine XR to 300 mg daily, cross tapering to a different antidepressant, or augmentation. She opted for a cross taper to escitalopram, which she has never tried before. She is very anxious about coming off of the venlafaxine XR, and we discussed discontinuation syndrome and that we would slow the taper down if she experiences any symptoms. We will start by decreasing her dose to 150 mg daily Misty C she takes it at noon). We'll start escitalopram 5 mg daily at bedtime tonight. Reviewed the risks, benefits , and common side effects, and she agreed. - Offer quetiapine 25mg prn for panic, as well as hydroxyzine (thinks hydroxyzine was ineffective). - Coordinate with outpatient providers, including therapist and recommended increasing appointments to weekly. - Refer for outpatient psychiatrist to manage medications. - Coordinate care with Dr. Jacobson, her PCP. - Family meeting with boyfriend. - Attend groups and therapy here, work on healthy coping skills and discharge safety plan. 08/20 - Tolerating decrease in Effexor XR well and wants to stay at this dose for now , fearing discontinuation syndrome. Continue escitalopram 5mg daily, continue. - Staff contacted Dr. Jacobson yesterday to review recent labs and ? adjust dose of levothyroxine. Awaiting return call. - Family meeting with boyfriend. - Wants to return to work Thursday. - Rec increasing therapy to weekly or every other week. - Refer to outpatient psychiatrist. 08/21 - Continue cross taper, by decreasing venlafaxine XR to 112.5 mg daily, and increasing escitalopram to 10 mg daily at bedtime. She would like instructions to continue this cross taper after discharge, and would also like a prescription for hydroxyzine as needed for anxiety at discharge. - Referred to Dr. Baires for medication management, and will follow-up with therapist, Machelle Liao. (2) Depression -Reviewed records, and question diagnosis of schizoaffective disorder bipolar type. Patient denies any symptoms of sun or psychosis in years, and some of the "paranoia" she had previously reported could be seen in the context of severe anxiety. In addition, she has been stable for years on venlafaxine XR without a mood stabilizer, as has only been on low-dose quetiapine, which supports a unipolar depression. -See plan above. -Continue quetiapine 100 mg daily at bedtime, and order fasting lipid profile and glucose for tomorrow morning for monitoring on an atypical antipsychotic, as she states she has not had these done in years. (3) Nicotine dependence Recognizes that smoking is worsening anxiety, and has cut back to 2 cigs/daily, and is interested in quitting. Will offer patch and gum as needed here, and can continue with OP prescription if needed. Can also refer to the quit line. (4) Hypothyroidism TSH low and per patient free T4 was high last week at PCP's office, but hasn't followed up with Dr. Jacobson yet. Will call his office to determine if levothyroxine 112mg should be decreased. This may also be contributing to anxiety. (5) Unprotected sex Patient is having unprotected sex, and does not desire to become at this time. She has not been taking oral contraceptives due to poor compliance with pills. Discussed concerns with unplanned and potential for destabilizing mood and anxiety further. We will refer her to her TOYS INSPECTOR for discussion of other contraception options, such as the NuvaRing, implant, or Depo-Provera shot. In the interim, she should use barrier protection such as condoms. Discharge / Aftercare Planning Primary Care Physician: Name: Dr Mendez/Radha Therapist: Name: Machelle Liao Date of Appointment: August 18, 2016 Visit Code E&M Code: 97880 Inventory Assets Strengths: "I'm very caring, compassionate, and kind. Risk Factors Assessment : Yes /single/: No Higher / Fall in social status: No Health problems: Yes Mental Health Diagnoses: Yes Substance use disorders: Yes Previous attempt: Yes Previous attempt;highly lethal: No Family history of suicide: No Previous psychiatric stay: Yes Hopelessness: Yes Smoker: Yes Protective Factors Assessment Ep[employer]opalian beliefs: Yes : No Responsible for young children: No Employed: Yes Stable relationships: Yes Supportive family: Yes Good rapport with provider: Yes Data Vital Signs Last 24 Hrs: Date Time Temp Pulse Resp B/P Pulse Ox O2 Delivery O2 Flow Rate FiO2 08/21/16 07:04 36.8 82 14 94/68 76 100/67 Meds Administered Last 24 Hrs: Meds Administered (Past 24Hrs) Medications (Trade) Dose Ordered Sig/Lory Route Start Time Stop Time Status Last Admin Dose Admin Venlafaxine HCl (effeXOR EXTENDED REL CAP) 150 mg DAILY@1200 PO 08/19/16 12:00 08/21/16 10:19 DC 08/20/16 11:53 150 MG Calcium/Vitamin D (Caltrate Plus Tab) 1 tab TID@1200,1600,2100 PO 08/19/16 12:00 09/18/16 11:59 08/20/16 20:46 1 TAB Escitalopram Oxalate (Lexapro Tab) 5 mg HS PO 08/19/16 22:00 08/21/16 10:19 DC 08/20/16 22:57 5 MG Problem Qualifiers (1) Depression: Depression Type: unspecified Qualified Codes: F32.9 - Major depressive disorder, single episode, unspecified (2) Nicotine dependence: Nicotine product type: cigarettes
--- NOTE | 2016-08-21 11:03 | Medical Student: BHU Only ---
Psychiatric Progress Note SUBJECTIVE: The patient was seen and assessed today, and progress was reviewed with nursing. The patient reports doing "good". Sleep was "good." Ms. Nails reports that she is doing "much better" since admission and has not had a panic attack while here on the unit. She had a meeting last night with her boyfriend, and she says this went well. Her goal is to make him more understanding of what she's going though and that she's not doing this on purpose. She said that her coworkers at the [employer] have been very supportive and sent her romero which made her happy. Ayana believes that her depression is "driven" by her anxiety, and because her anxiety has been improving, so has the depression. Her goal is to better control the attacks so that the anxiety and depression can be mitigated. Ayana acknowledged that the panic disorder can be likened to a vicious cycle: she has a panic attack which makes her anxious about having another which in turn predisposes her to panic attacks and so on. She notes that her anxiety is worse in the morning, and she is able to recognize triggers such as palpitations and heat. She said that she almost had a panic attack at her boyfriend's meeting not because of any interaction, but because the room was warm. Ayana says that because she is able to recognize these triggers, she tries to calm herself by walking around. Ayana has been doing well in activities; I saw she contributed nicely to group therapy yesterday by being open about her journey with the group. She smiles and is pleasant with the other patients on the unit. Ayana denies any side effects associated with her treatment regimen and was not tearful in her interview. ROS: Sleep: "good" but also commented on having vivid, scary dreams. They often consist of scary events near her childhood home. She says this has caused her to avoid driving down particular streets in [place] to avoid the childhood homes associated with these nightmares. Appetite: "good" MSE: Appearance is that of a casually dressed woman with disheveled hair that seems uncharacteristic for her. Eye contact and attention are appropriate. Motor behavior: No abnormal psychomotor movement. Speech: volume, rate, and tone were all normal. Mood: "good" "much better" Affect: congruently euthymic and full Thought process: Linear, logical, and goal directed. Thought content: No evidence of SI, HI, delusions, or preoccupations. Perception: No evidence of hallucinations, derealization, or delusions. Cognition: Patient is alert and oriented to person, place, and time. Memory and language grossly intact. Insight and judgment are appropriate. ASSESSMENT: Ayana Nails is a 26-year-old female with a history of anxiety and depression who was admitted to the hospital voluntarily due to suicidal ideation and panic attacks. PLAN: 1. Panic Disorder & Depression - Patient will attend all groups and attend therapeutic programming. Q15 checks for her safety by nursing. Patient may have roommate. - Continue cross taper of Venlafaxine to Escitalopram - Continue Escitalopram at 5 mg PO daily for 7 days (until August 25) before increasing to 10 mg daily. - Continue Venlafaxine XR 150 mg PO daily. D/C Venlafaxine 75 mg PO daily. - Continue Quetiapine according to current regimen. - Provide Hydroxyzine at 50 mg PO PRN for panic attacks. - Connect patient with psychiatric outpatient care as her symptoms appear to be too complex to be managed by a PCP. 2. Hypothyroidism - Decreased TSH was reviewed with patient. It was explained that this could mean that her thyroid is overactive which may lead to a decrease in her current dose of 112 mcg of levothyroxine daily. - Will contact her PCP, Dr. Jacobson, to review patient's most recent lab results which showed an increased free T4 level. Will solicit his judgment on possibly decreasing her current dose to potentially mitigate her anxiety. - 1899August 19 - Dr. Jacobson returned my phone call, and I updated him on the status of our patient. He said he would review the patient's labs and contact the unit to discuss further. -1033August 21 - Still waiting to hear from Dr. Jacobson on how to proceed. Will contact his office again. - 1101August 21 - Called his office and left the [facility] phone number for him to call back to discuss high T4 labs from outpatient and low TSH of 0.372 from admission. Will update nursing staff to expect this call from him. Date of Service: August 21, 2016.
[2016-08-21] MEDS ORDERED: VENLAFAXINE HCL XR 150 MG CAPXR PO SCH (12:00)
[2016-08-21] MEDS: VENLAFAXINE HCL XR 75 MG CAPXR PO SCH (12:40)
[2016-08-21] MEDS: VENLAFAXINE HCL XR 37.5 MG CAPXR PO SCH (12:40)
[2016-08-21] MEDS: CALCIUM 600MG + VIT D 400 IU TAB PO SCH ×3 (12:40→21:21)
[2016-08-21] MEDS: ESCITALOPRAM OXALATE 10 MG TAB PO SCH (23:03)
[2016-08-21] MEDS: QUETIAPINE FUMARATE 100 MG TAB PO SCH (23:04)
[2016-08-22 06:54] VITALS: BP_SYST 86; BP_SYST 96; BP_DIAS 53; BP_DIAS 68; PULSE 101; PULSE 67; TEMP 36.6
[2016-08-22] MEDS: LEVOTHYROXINE 112 MCG TAB PO SCH (07:41)
[2016-08-22] MEDS: VENLAFAXINE HCL XR 75 MG CAPXR PO SCH (11:59)
[2016-08-22] MEDS: VENLAFAXINE HCL XR 37.5 MG CAPXR PO SCH (11:59)
[2016-08-22] MEDS: CALCIUM 600MG + VIT D 400 IU TAB PO SCH ×3 (11:59→22:55)
--- NOTE | 2016-08-22 13:55 | Psychiatric Progress Notes ---
Progress Note Date of Service August 22, 2016. Interval History Ayana Nails is a 26-year-old female who currently lives in [place] with her boyfriend and his parents, has a history of schizoaffective disorder bipolar type, anxiety not otherwise specified, and dissociative disorder, and presented to the emergency room with worsening mood, anxiety, and suicidal ideation and was admitted voluntarily. Chief Complaint "I am not ready to go home, I am so afraid and if I am anxious at home I can't help but want to think about being to not feel anxious". Subjective Patient was seen & assessed interval progress reviewed with Treatment Team and Jewel Inserter. The patient continues to be anxious. The feels that she may be tired due to medications as she lowers effexor XR and starts lexapro with prn hydroxyzine. Nursing reports her affect as flat. She however had a good visit with family last evening. She had lability to tears and anxiety this AM with high anxiety fearing that she will leave here, continue to have anxiety and that is when she idealizes being because it would stop the anxiety. She spent significant time with nursing staff for support and assistance and took prn hydroxyzine. Met with patient who expresses ongoing significant anxiety and lability to tears. She states she worries about everything most specifically about having a panic attack at work. She denies active SI at this time but fears that she will feel suicidal amidst significant panic and fears this will happen at home as she feels no different than when she came to the hospital. SHe is not having discontinuation sx from reduction of Effexor XR from 225mg to 112.5mg yesterday, and increase of lexapro from 5mg to 10mg last night. She is having more tiredness, we discussed this may be lexapro or the prn hydroxyzine or both. she is afraid to stay on the effexor, afraid to move to the lexapro if it is going to cause SE. SHe has a panic attack last night over this quandry. She feels lower because of her ongoing anxiety but denies feeling overtly depressed at this time. SHe denies s/sx of psychosis at this time. Review of Systems She is tired as noted above, and anxious o/w denies physical concerns. Sleep Information Total Hours of Sleep: 6.50 Meal Information Percent of Breakfast Consumed: 75 Percent of Lunch Consumed: 100 Percent of Dinner Consumed: 50 Mental Status Exam During interview pt is: alert and oriented, cooperative Appearance: appropriately dressed, appropriately groomed, appeared stated age Eye contact is: good Motor behavior is: steady gait & station, no abnormal motor movements Speech: normal in rate, rhythm & volume Affect: mood congruent, tearful (worried about panic), anxious Mood is: anxious, other Thought process: goal directed Thought content: reality based without delusions Suicidal thought are: denied Homicidal thoughts are: denied Hallucinations: denies auditory, denies visual Cognition: memory grossly intact, attention grossly intact, language grossly intact Intelligence estimated to be: average Insight: fair Judgement: fair Impression 26-year-old female with a history of schizoaffective disorder bipolar type, dissociative disorder, cannabis and abuse, and anxiety disorder who presents with worsening anxiety and mood resulting in suicidal ideation. She is admitted voluntarily. She would benefit from medication adjustments and exploring whether her thyroid medication may be playing a role in increased anxiety and panic. Diagnoses have been reviewed, and she appears to meet criteria for MDD, panic and RUBIN at this time. We are switching to another antidepressant as her current medication has not been effective recently. She would also benefit from outpatient follow-up with a psychiatrist, and increasing her therapy sessions to at least weekly. Plan (1) Panic disorder - Discuss treatment options for addressing anxiety and depression, including increasing venlafaxine XR to 300 mg daily, cross tapering to a different antidepressant, or augmentation. She opted for a cross taper to escitalopram, which she has never tried before. She is very anxious about coming off of the venlafaxine XR, and we discussed discontinuation syndrome and that we would slow the taper down if she experiences any symptoms. We will start by decreasing her dose to 150 mg daily Misty C she takes it at noon). We'll start escitalopram 5 mg daily at bedtime tonight. Reviewed the risks, benefits , and common side effects, and she agreed. - Offer quetiapine 25mg prn for panic, as well as hydroxyzine (thinks hydroxyzine was ineffective). - Coordinate with outpatient providers, including therapist and recommended increasing appointments to weekly. - Refer for outpatient psychiatrist to manage medications. - Coordinate care with Dr. Jacobson, her PCP. - Family meeting with boyfriend. - Attend groups and therapy here, work on healthy coping skills and discharge safety plan. 08/20 - Tolerating decrease in Effexor XR well and wants to stay at this dose for now , fearing discontinuation syndrome. Continue escitalopram 5mg daily, continue. - Staff contacted Dr. Jacobson yesterday to review recent labs and ? adjust dose of levothyroxine. Awaiting return call. - Family meeting with boyfriend. - Wants to return to work Thursday. - Rec increasing therapy to weekly or every other week. - Refer to outpatient psychiatrist. 08/21 - Continue cross taper, by decreasing venlafaxine XR to 112.5 mg daily, and increasing escitalopram to 10 mg daily at bedtime. She would like instructions to continue this cross taper after discharge, and would also like a prescription for hydroxyzine as needed for anxiety at discharge. - Referred to Dr. Baires for medication management, and will follow-up with therapist, Machelle Liao. 08/22 - Spent >40min with patient in therapy discussing relaxation for panic and the role of practicing and pairing, using CBT to help her challenge her ambivalence about all descisions discussing having a plan and her role as a "problem solver " when she worries, and her role as an observer and sole rounder with med changes" Patient participates actively and is engaged, she agrees to work on relaxation breathing, she agrees to work on considering her return to work plan for discussion at our meeting tomorrow, she agrees when she worries about the med changes to remind herself that she is a "observer and a sole rounder" instead of re- questioning the decision for change. SHe stated her distress was "much less" after this discussion and encouraged her that these processes begin her inpatient and wiill continue with her outpatient providers. - plan continue effexor XR 112.5mg, and lexapro 10m watching for sedation that may be lexapro and/or prn hydroxyzine mediated, with low threshold for increase of lexapro to 15mg tomorrow (2) Depression -Reviewed records, and question diagnosis of schizoaffective disorder bipolar type. Patient denies any symptoms of sun or psychosis in years, and some of the "paranoia" she had previously reported could be seen in the context of severe anxiety. In addition, she has been stable for years on venlafaxine XR without a mood stabilizer, as has only been on low-dose quetiapine, which supports a unipolar depression. -See plan above. -Continue quetiapine 100 mg daily at bedtime, and order fasting lipid profile and glucose for tomorrow morning for monitoring on an atypical antipsychotic, as she states she has not had these done in years. 08/22/16 reviewed record on 08/20/16 lipids and FBS WNL, continue seroquel at this time as noted above if sedation continues as outpatient they could consider protracted taper of serqouel vs. alternative antidepressant or possible addition of wellbutrin (3) Nicotine dependence Recognizes that smoking is worsening anxiety, and has cut back to 2 cigs/daily, and is interested in quitting. Will offer patch and gum as needed here, and can continue with OP prescription if needed. Can also refer to the quit line. (4) Hypothyroidism TSH low and per patient free T4 was high last week at PCP's office, but hasn't followed up with Dr. Jacobson yet. Will call his office to determine if levothyroxine 112mg should be decreased. This may also be contributing to anxiety. (5) Unprotected sex Patient is having unprotected sex, and does not desire to become at this time. She has not been taking oral contraceptives due to poor compliance with pills. Discussed concerns with unplanned and potential for destabilizing mood and anxiety further. We will refer her to her CORRUGATED BOX MACHINE OPERATOR for discussion of other contraception options, such as the NuvaRing, implant, or Depo-Provera shot. In the interim, she should use barrier protection such as condoms. Discharge / Aftercare Planning Primary Care Physician: Name: Dr Mendez/Radha Psychiatrist: Name: Dr Valdovinos at [facility] Date of Appointment: September 02, 2016 Time of Appointment: 10:10 Therapist: Name: Machelle Liao Date of Appointment: August 27, 2016 Time of Appointment: 1100 Visit Code E&M Code: 16720 Therapy Code: 25681 Inventory Assets Strengths: "I'm very caring, compassionate, and kind. Risk Factors Assessment : Yes /single/: No Higher / Fall in social status: No Health problems: Yes Mental Health Diagnoses: Yes Substance use disorders: Yes Previous attempt: Yes Previous attempt;highly lethal: No Family history of suicide: No Previous psychiatric stay: Yes Hopelessness: Yes Smoker: Yes Protective Factors Assessment Mormonism beliefs: Yes : No Responsible for young children: No Employed: Yes Stable relationships: Yes Supportive family: Yes Good rapport with provider: Yes Data Vital Signs Last 24 Hrs: Date Time Temp Pulse Resp B/P Pulse Ox O2 Delivery O2 Flow Rate FiO2 08/22/16 06:54 36.6 67 14 96/68 101 86/53 Meds Administered Last 24 Hrs: Meds Administered (Past 24Hrs) Medications (Trade) Dose Ordered Sig/Lory Route Start Time Stop Time Status Last Admin Dose Admin Escitalopram Oxalate (Lexapro Tab) 10 mg HS PO 08/21/16 22:00 09/20/16 21:59 08/21/16 23:03 10 MG Venlafaxine HCl (effeXOR EXTENDED REL CAP) 37.5 mg QDL PO 08/21/16 12:30 09/20/16 12:29 08/22/16 11:59 37.5 MG Venlafaxine HCl (effeXOR EXTENDED REL CAP) 75 mg QDL PO 08/21/16 12:30 09/20/16 12:29 08/22/16 11:59 75 MG Problem Qualifiers (1) Depression: Depression Type: unspecified Qualified Codes: F32.9 - Major depressive disorder, single episode, unspecified (2) Nicotine dependence: Nicotine product type: cigarettes
[2016-08-22] MEDS: ESCITALOPRAM OXALATE 10 MG TAB PO SCH (22:55)
[2016-08-22] MEDS: QUETIAPINE FUMARATE 100 MG TAB PO SCH (22:55)
[2016-08-23 06:47] VITALS: BP_SYST 103; BP_SYST 111; BP_DIAS 72; BP_DIAS 74; PULSE 69; PULSE 78; TEMP 36.3
[2016-08-23] MEDS: LEVOTHYROXINE 112 MCG TAB PO SCH (08:06)
[2016-08-23] MEDS: CALCIUM 600MG + VIT D 400 IU TAB PO SCH ×3 (12:04→22:58)
[2016-08-23] MEDS: VENLAFAXINE HCL XR 75 MG CAPXR PO SCH (12:05)
[2016-08-23] MEDS: VENLAFAXINE HCL XR 37.5 MG CAPXR PO SCH (12:05)
--- NOTE | 2016-08-23 15:00 | Psychiatric Progress Notes ---
Progress Note Date of Service August 23, 2016. Interval History Ayana Nails is a 26-year-old female who currently lives in [place] with her boyfriend and his parents, has a history of schizoaffective disorder bipolar type, anxiety not otherwise specified, and dissociative disorder, and presented to the emergency room with worsening mood, anxiety, and suicidal ideation and was admitted voluntarily. Chief Complaint "I feel so tired". 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 She continues to be ambivalent about work. She notes that she feels counted on to be there and feels pressured to get back , and noting she does not get paid if she does not work. Further she remains ambivalent about medications. She is clear that she feels very tired after taking the lexapro at bedtime and through lunchtime the next day and feels a little bit cloudy. SHe also is having stomach upset an frequent bowel movements on the lexapro. SHe is most worried about feeling cloudy headed and not functioning at work "I need to be on my game" She felt that the effexor XR helped her or at least did not hinder her energy. Anxiety rate today as a 5/10 "I have some hope and I have some scared" SHe is not currently suicidal but continues to worry if she feels acutely anxious as she had been. She does not feel depressed today, "I have some hope today, but yesterday was awful, I just don't know" Review of Systems intact appetite, denies physical concerns other than reported above, psychological sx as reported above Sleep Information Total Hours of Sleep: 6.50 Meal Information Percent of Breakfast Consumed: 75 Percent of Lunch Consumed: 100 Percent of Dinner Consumed: 100 Mental Status Exam During interview pt is: alert and oriented, cooperative Appearance: appropriately dressed, appropriately groomed, appeared stated age Eye contact is: good Motor behavior is: steady gait & station, no abnormal motor movements Speech: normal in rate, rhythm & volume Affect: mood congruent, anxious Mood is: anxious, other (and has some hope) Thought process: goal directed Thought content: reality based without delusions Suicidal thought are: denied Homicidal thoughts are: denied Hallucinations: denies auditory, denies visual Cognition: memory grossly intact, attention grossly intact, language grossly intact Intelligence estimated to be: average Insight: fair Judgement: fair Impression 26-year-old female with a history of schizoaffective disorder bipolar type, dissociative disorder, cannabis and abuse, and anxiety disorder who presents with worsening anxiety and mood resulting in suicidal ideation. She is admitted voluntarily. She would benefit from medication adjustments and exploring whether her thyroid medication may be playing a role in increased anxiety and panic. Diagnoses have been reviewed, and she appears to meet criteria for MDD, panic and RUBIN at this time. We are switching to another antidepressant as her current medication has not been effective recently. She would also benefit from outpatient follow-up with a psychiatrist, and increasing her therapy sessions to at least weekly. Plan (1) Panic disorder - Discuss treatment options for addressing anxiety and depression, including increasing venlafaxine XR to 300 mg daily, cross tapering to a different antidepressant, or augmentation. She opted for a cross taper to escitalopram, which she has never tried before. She is very anxious about coming off of the venlafaxine XR, and we discussed discontinuation syndrome and that we would slow the taper down if she experiences any symptoms. We will start by decreasing her dose to 150 mg daily Misty C she takes it at noon). We'll start escitalopram 5 mg daily at bedtime tonight. Reviewed the risks, benefits , and common side effects, and she agreed. - Offer quetiapine 25mg prn for panic, as well as hydroxyzine (thinks hydroxyzine was ineffective). - Coordinate with outpatient providers, including therapist and recommended increasing appointments to weekly. - Refer for outpatient psychiatrist to manage medications. - Coordinate care with Dr. Jacobson, her PCP. - Family meeting with boyfriend. - Attend groups and therapy here, work on healthy coping skills and discharge safety plan. 08/20 - Tolerating decrease in Effexor XR well and wants to stay at this dose for now , fearing discontinuation syndrome. Continue escitalopram 5mg daily, continue. - Staff contacted Dr. Jacobson yesterday to review recent labs and ? adjust dose of levothyroxine. Awaiting return call. - Family meeting with boyfriend. - Wants to return to work Thursday. - Rec increasing therapy to weekly or every other week. - Refer to outpatient psychiatrist. 08/21 - Continue cross taper, by decreasing venlafaxine XR to 112.5 mg daily, and increasing escitalopram to 10 mg daily at bedtime. She would like instructions to continue this cross taper after discharge, and would also like a prescription for hydroxyzine as needed for anxiety at discharge. - Referred to Dr. Baires for medication management, and will follow-up with therapist, Machelle Liao. 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 SHe stated her distress was "much less" after this discussion and encouraged her that these processes begin her inpatient and wiill continue with her outpatient providers. - plan continue effexor XR 112.5mg, and lexapro 10m watching for sedation that may be lexapro and/or prn hydroxyzine mediated, with low threshold for increase of lexapro to 15mg tomorrow 08/23/16 due to tiredness on lexapro will stop, and return to Effexor XR 150mg and add buspar with caution likely weighting it to evening doses (e.g. 5mg Am 5mg mid day and 10mg/hs) to avoid sedation and cloudi-headedness but keep the anti-anxiety benefits of lexapro to date (she declines retrial of prozac, continuing with lexapro with plan for retrial of wellbutrin to combat sedation) - again discussed relaxation exercise - agan discussed return to work options (2) Depression -Reviewed records, and question diagnosis of schizoaffective disorder bipolar type. Patient denies any symptoms of sun or psychosis in years, and some of the "paranoia" she had previously reported could be seen in the context of severe anxiety. In addition, she has been stable for years on venlafaxine XR without a mood stabilizer, as has only been on low-dose quetiapine, which supports a unipolar depression. -See plan above. -Continue quetiapine 100 mg daily at bedtime, and order fasting lipid profile and glucose for tomorrow morning for monitoring on an atypical antipsychotic, as she states she has not had these done in years. 08/22/16 -reviewed record on 08/20/16 lipids and FBS WNL, continue seroquel at this time as noted above if sedation continues as outpatient they could consider protracted taper of serqouel vs. alternative antidepressant or possible addition of wellbutrin 08/23/16 - see plan under anxiety above (3) Nicotine dependence Recognizes that smoking is worsening anxiety, and has cut back to 2 cigs/daily, and is interested in quitting. Will offer patch and gum as needed here, and can continue with OP prescription if needed. Can also refer to the quit line. (4) Hypothyroidism TSH low and per patient free T4 was high last week at PCP's office, but hasn't followed up with Dr. Jacobson yet. Will call his office to determine if levothyroxine 112mg should be decreased. This may also be contributing to anxiety. (5) Unprotected sex Patient is having unprotected sex, and does not desire to become at this time. She has not been taking oral contraceptives due to poor compliance with pills. Discussed concerns with unplanned and potential for destabilizing mood and anxiety further. We will refer her to her SENIOR IOS DEVELOPER for discussion of other contraception options, such as the NuvaRing, implant, or Depo-Provera shot. In the interim, she should use barrier protection such as condoms. Discharge / Aftercare Planning Primary Care Physician: Name: Dr Mendez/Radha Psychiatrist: Name: Dr Valdovinos at [facility] Date of Appointment: September 02, 2016 Time of Appointment: 10:10 Therapist: Name: Machelle Liao Date of Appointment: August 27, 2016 Time of Appointment: 1100 Visit Code E&M Code: 38004 Inventory Assets Strengths: "I'm very caring, compassionate, and kind. Risk Factors Assessment : Yes /single/: No Higher / Fall in social status: No Health problems: Yes Mental Health Diagnoses: Yes Substance use disorders: Yes Previous attempt: Yes Previous attempt;highly lethal: No Family history of suicide: No Previous psychiatric stay: Yes Hopelessness: Yes Smoker: Yes Protective Factors Assessment Gnosticism beliefs: Yes : No Responsible for young children: No Employed: Yes Stable relationships: Yes Supportive family: Yes Good rapport with provider: Yes Data Vital Signs Last 24 Hrs: Date Time Temp Pulse Resp B/P Pulse Ox O2 Delivery O2 Flow Rate FiO2 08/23/16 06:47 36.3 69 18 111/74 78 103/72 Meds Administered Last 24 Hrs: Meds Administered (Past 24Hrs) Medications (Trade) Dose Ordered Sig/Lory Route Start Time Stop Time Status Last Admin Dose Admin Escitalopram Oxalate (Lexapro Tab) 10 mg HS PO 08/21/16 22:00 09/20/16 21:59 08/22/16 22:55 10 MG Problem Qualifiers (1) Depression: Depression Type: unspecified Qualified Codes: F32.9 - Major depressive disorder, single episode, unspecified (2) Nicotine dependence: Nicotine product type: cigarettes
[2016-08-23] MEDS: QUETIAPINE FUMARATE 100 MG TAB PO SCH (22:58)
[2016-08-24] MEDS: VENLAFAXINE HCL XR 75 MG CAPXR PO SCH ×2 (06:43→12:30)
[2016-08-24 07:00] VITALS: BP_SYST 102; BP_SYST 103; BP_DIAS 67; BP_DIAS 71; PULSE 67; PULSE 96; TEMP 36.4
[2016-08-24] MEDS: LEVOTHYROXINE 112 MCG TAB PO SCH (07:43)
--- NOTE | 2016-08-24 10:36 | Psychiatric Progress Notes ---
Progress Note Date of Service August 24, 2016. Interval History Ayana Nails is a 26-year-old female who currently lives in [place] with her boyfriend and his parents, has a history of schizoaffective disorder bipolar type, anxiety not otherwise specified, and dissociative disorder, and presented to the emergency room with worsening mood, anxiety, and suicidal ideation and was admitted voluntarily. Chief Complaint "my heart rate feels like it is high". Subjective Patient was seen & assessed interval progress reviewed with Nursing and 24hour chart review SHe notes she continues to worry "I can't stay in the moment" SHe is not sure if her anxiety is better, worse or about the same today "I just don't know, I worry about everything" SHe felt a little bit better after chair yoga. She is less tired today than the last 2 days, she is not having any cloudiheadedness SHe is a focussed on her heart rate, and review of record and her HR has been high on prior days intermittently prior to the increase of effexor XR. Her TFT' s were TSH 0.5 and T4 "slightly high, and T3 "normal" two weeks ago at her outpatient provider but has not yet had f/u with him "he could not get me in" Heres TSH is 0.372. SHe has been on levothyroxine dosing "I think it was 112mcg /d then one day take only half pill" SHe states "I feel like I need to see the doctor to address the right dose" Discussed her thoughts about work, worry of not working and worry of working. Discussed suicidal ideations and how she would deal with suicidal thoughts if she felt unsafe. She continues to worry if she becomes acutely anxious that she will feel suicidal. We discussed breathing, having a plan if she feels anxious and having a plan if she feels suicidal. Sleep Information Total Hours of Sleep: 6.50 Meal Information Percent of Breakfast Consumed: 90 Percent of Lunch Consumed: 100 Percent of Dinner Consumed: 100 Mental Status Exam During interview pt is: alert and oriented, cooperative Appearance: appropriately dressed, appropriately groomed, appeared stated age Eye contact is: good Motor behavior is: steady gait & station, no abnormal motor movements Speech: normal in rate, rhythm & volume Affect: mood congruent, anxious Mood is: anxious, other (and has some hope) Thought process: goal directed Thought content: reality based without delusions Suicidal thought are: denied (but ongoing anxiety with limited insight/plan for safety if she does become anxious) Homicidal thoughts are: denied Hallucinations: denies auditory, denies visual Cognition: memory grossly intact, attention grossly intact, language grossly intact Intelligence estimated to be: average Insight: fair Judgement: fair Impression 26-year-old female with a history of schizoaffective disorder bipolar type, dissociative disorder, cannabis and abuse, and anxiety disorder who presents with worsening anxiety and mood resulting in suicidal ideation. She is admitted voluntarily. She would benefit from medication adjustments and exploring whether her thyroid medication may be playing a role in increased anxiety and panic. Diagnoses have been reviewed, and she appears to meet criteria for MDD, panic and RUBIN at this time. We are switching to another antidepressant as her current medication has not been effective recently. She would also benefit from outpatient follow-up with a psychiatrist, and increasing her therapy sessions to at least weekly. Plan (1) Panic disorder - Discuss treatment options for addressing anxiety and depression, including increasing venlafaxine XR to 300 mg daily, cross tapering to a different antidepressant, or augmentation. She opted for a cross taper to escitalopram, which she has never tried before. She is very anxious about coming off of the venlafaxine XR, and we discussed discontinuation syndrome and that we would slow the taper down if she experiences any symptoms. We will start by decreasing her dose to 150 mg daily Misty C she takes it at noon). We'll start escitalopram 5 mg daily at bedtime tonight. Reviewed the risks, benefits , and common side effects, and she agreed. - Offer quetiapine 25mg prn for panic, as well as hydroxyzine (thinks hydroxyzine was ineffective). - Coordinate with outpatient providers, including therapist and recommended increasing appointments to weekly. - Refer for outpatient psychiatrist to manage medications. - Coordinate care with Dr. Jacobson, her PCP. - Family meeting with boyfriend. - Attend groups and therapy here, work on healthy coping skills and discharge safety plan. 08/20 - Tolerating decrease in Effexor XR well and wants to stay at this dose for now , fearing discontinuation syndrome. Continue escitalopram 5mg daily, continue. - Staff contacted Dr. Jacobson yesterday to review recent labs and ? adjust dose of levothyroxine. Awaiting return call. - Family meeting with boyfriend. - Wants to return to work Thursday. - Rec increasing therapy to weekly or every other week. - Refer to outpatient psychiatrist. 08/21 - Continue cross taper, by decreasing venlafaxine XR to 112.5 mg daily, and increasing escitalopram to 10 mg daily at bedtime. She would like instructions to continue this cross taper after discharge, and would also like a prescription for hydroxyzine as needed for anxiety at discharge. - Referred to Dr. Baires for medication management, and will follow-up with therapist, Machelle Liao. 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 SHe stated her distress was "much less" after this discussion and encouraged her that these processes begin her inpatient and wiill continue with her outpatient providers. - plan continue effexor XR 112.5mg, and lexapro 10m watching for sedation that may be lexapro and/or prn hydroxyzine mediated, with low threshold for increase of lexapro to 15mg tomorrow 08/23/16 due to tiredness on lexapro will stop, and return to Effexor XR 150mg and add buspar with caution likely weighting it to evening doses (e.g. 5mg Am 5mg mid day and 10mg/hs) to avoid sedation and cloudi-headedness but keep the anti-anxiety benefits of lexapro to date (she declines retrial of prozac, continuing with lexapro with plan for retrial of wellbutrin to combat sedation) - again discussed relaxation exercise - again discussed return to work options 08/24/16 - repeat of yesterday with plan for her to mentally consider concrete plans if she becomes anxious at work, and/or has suicidal thoughts amidst panic of what she can do, continue meds as above, discussed concrete return to work plan as well (e.g. 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 Plans to mitigate further risk by addition 24hours of observation of tolerability of this regimen, establishing outpatient PCM services about thyroid and obligating her to concrete planning for distressing moments between now and discharge tomorrow, and finally concrete return to work strategy that allows for partial work week to ease back into the highest stressor of her roles. (2) Depression -Reviewed records, and question diagnosis of schizoaffective disorder bipolar type. Patient denies any symptoms of sun or psychosis in years, and some of the "paranoia" she had previously reported could be seen in the context of severe anxiety. In addition, she has been stable for years on venlafaxine XR without a mood stabilizer, as has only been on low-dose quetiapine, which supports a unipolar depression. -See plan above. -Continue quetiapine 100 mg daily at bedtime, and order fasting lipid profile and glucose for tomorrow morning for monitoring on an atypical antipsychotic, as she states she has not had these done in years. 08/22/16 -reviewed record on 08/20/16 lipids and FBS WNL, continue seroquel at this time as noted above if sedation continues as outpatient they could consider protracted taper of serqouel vs. alternative antidepressant or possible addition of wellbutrin 08/23/16 and 08/24/16 - see plan under anxiety above (3) Nicotine dependence Recognizes that smoking is worsening anxiety, and has cut back to 2 cigs/daily, and is interested in quitting. Will offer patch and gum as needed here, and can continue with OP prescription if needed. Can also refer to the quit line. (4) Hypothyroidism TSH low and per patient free T4 was high last week at PCP's office, but hasn't followed up with Dr. Jacobson yet. Will call his office to determine if levothyroxine 112mg should be decreased. This may also be contributing to anxiety. 08/24/16 - patient has been on alternating doses of 112mg in the past, and show function at high normal, levothyroxine could mediate high heart rate and anxious feeling but given the complexity of her past dosing, will keep patient until tomorrow at which time we can facilitate an outpatient f/u (sagar was not able to get in to see provider) to answer this question and possibly mitigate another risk factor contributing to her physical and psychological activation (5) Unprotected sex Patient is having unprotected sex, and does not desire to become at this time. She has not been taking oral contraceptives due to poor compliance with pills. Discussed concerns with unplanned and potential for destabilizing mood and anxiety further. We will refer her to her CLINICAL DATA ABSTRACTOR for discussion of other contraception options, such as the NuvaRing, implant, or Depo-Provera shot. In the interim, she should use barrier protection such as condoms. Discharge / Aftercare Planning Primary Care Physician: Name: Dr Mendez/Radha Psychiatrist: Name: Dr Valdovinos at [facility] Date of Appointment: September 02, 2016 Time of Appointment: 10:10 Therapist: Name: Machelle Liao Date of Appointment: August 27, 2016 Time of Appointment: 1100 Visit Code E&M Code: 00615 Inventory Assets Strengths: "I'm very caring, compassionate, and kind. Risk Factors Assessment : Yes /single/: No Higher / Fall in social status: No Health problems: Yes Mental Health Diagnoses: Yes Substance use disorders: Yes Previous attempt: Yes Previous attempt;highly lethal: No Family history of suicide: No Previous psychiatric stay: Yes Hopelessness: Yes Smoker: Yes Protective Factors Assessment Buddhist beliefs: Yes : No Responsible for young children: No Employed: Yes Stable relationships: Yes Supportive family: Yes Good rapport with provider: Yes Data Vital Signs Last 24 Hrs: Date Time Temp Pulse Resp B/P Pulse Ox O2 Delivery O2 Flow Rate FiO2 08/24/16 07:00 36.4 67 16 103/71 96 102/67 Meds Administered Last 24 Hrs: Meds Administered (Past 24Hrs) Medications (Trade) Dose Ordered Sig/Lory Route Start Time Stop Time Status Last Admin Dose Admin Venlafaxine HCl (effeXOR EXTENDED REL CAP) 150 mg QD@0700 PO 08/24/16 07:00 09/23/16 06:59 08/24/16 06:43 150 MG Buspirone HCl (Buspar Tab) 5 mg [id number] PO 08/24/16 07:00 09/23/16 06:59 08/24/16 06:42 5 MG Buspirone HCl (Buspar Tab) 10 mg HS PO 08/23/16 22:00 09/22/16 21:59 08/23/16 22:58 10 MG Buspirone HCl (Buspar Tab) 5 mg 1530 ONCE PO 08/23/16 15:30 08/23/16 15:31 DC 08/23/16 16:15 5 MG Problem Qualifiers (1) Depression: Depression Type: unspecified Qualified Codes: F32.9 - Major depressive disorder, single episode, unspecified (2) Nicotine dependence: Nicotine product type: cigarettes
[2016-08-24] MEDS: CALCIUM 600MG + VIT D 400 IU TAB PO SCH ×3 (12:55→21:19)
[2016-08-24] MEDS: QUETIAPINE FUMARATE 100 MG TAB PO SCH (23:04)
[2016-08-25 07:03] VITALS: BP_SYST 105; BP_SYST 111; BP_DIAS 73; BP_DIAS 74; PULSE 76; PULSE 87; TEMP 36.7
[2016-08-25] MEDS: VENLAFAXINE HCL XR 75 MG CAPXR PO SCH (07:28)
[2016-08-25] MEDS: LEVOTHYROXINE 112 MCG TAB PO SCH (09:07)
[2016-08-25] MEDS ORDERED: BSP5 PO (09:25)
[2016-08-25] MEDS ORDERED: ATR25 PO (09:25)
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
[2016-08-25] MEDS: CALCIUM 600MG + VIT D 400 IU TAB PO SCH (12:35)
== END 2016-08-25 13:15 | disposition home or self-care (01) | DRG 880 ==
LOC: C.EDB 13:17 → C.MHU 16:46
PROVIDERS: ADMIT Psychiatry & Neurology Psychiatry; ATTEND Psychiatry & Neurology Psychiatry
DX: F41.0 Panic disorder [episodic paroxysmal anxiety] (principal); R45.851 Suicidal ideations; F32.9 Major depressive disorder, single episode, unspecified; F17.210 Nicotine dependence, cigarettes, uncomplicated; E03.9 Hypothyroidism, unspecified; Z91.14 Patient's other noncompliance with medication regimen; Z72.51 High risk heterosexual behavior; Z81.8 Family history of other mental and behavioral disorders; Z86.59 Personal history of other mental and behavioral disorders; Z79.899 Other long term (current) drug therapy

== ENCOUNTER 2016-08-27 11:49 | Emergency (ER) | payer OTHER ==
[~2016-08-27] VITALS: Ht 165.1 cm; Wt 55.8 kg
[~2016-08-27 11:49] MED LIST changes: +ATR25 PO; +BSP5 PO; +CALC500C70 PO; -EFFSR150 PO; +LEVO112T4 PO; -LEVO88TA PO; -QUET-205 PO; +QUET1TAB34 PO; +VENL150C56 PO
[2016-08-27 11:54] VITALS: TEMP 36.5; Ht 165.1 cm; Wt 55.8 kg
[2016-08-27 12:16] VITALS: O2SAT 99
[2016-08-27 12:59] LABS: HEMATOCRIT 42.4 % (37-47); MEAN CORPUSCULAR HEMOGLOBIN 31.5 pg (25-34); MEAN CORPUSCULAR HGB CONC 34.2 g/dl (32-36); MEAN PLATELET VOLUME 10.5 fL (7.4-10.4); PLATELET COUNT 268 K/uL (130-400); RED BLOOD COUNT 4.61 M/uL (4.2-5.4); WHITE BLOOD COUNT 11.15 K/uL (4.8-10.8)
[2016-08-27 13:04] LABS: CALCIUM 7.7 mg/dl (8.5-10.1)
[2016-08-27 13:07] LABS: BUN/CREATININE RATIO 8.4 (10-20); CREATININE 0.81 mg/dl (0.60-1.20); POTASSIUM 3.8 mmol/L (3.5-5.1)
--- NOTE | 2016-08-27 13:13 | EMERGENCY ROOM VISIT NOTE ---
History Report prepared by Stephanie: Magali Cohen Under the Supervision of: Dr. Abilio Moncada M.D. First contact with patient: 12:44 Chief Complaint: DIZZY Stated Complaint: DIZZY, RACING HEART Nursing Triage Summary: Pt tearful in triage. Pt states d/c from here on Mon from [facility]. Pt reports heart racing and feels dizzy. Pt states, "I have a lot of anxiety. I think I am dehydrated and crampy. They adjusted my meds when I was here. 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 Denies suicidal ideations. History of Present Illness The patient is a 26 year old female who presents to the Emergency Room with complaints of worsening anxiety since yesterday. The patient was discharged from the hospital 2 days ago after being treated for mental health. While she was in the hospital, her Effexor dosage was lowered and she was started on buspirone. 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 She worked for 4 hours yesterday and was feeling good while at work. By the end of her shift she started to feel a little shaky. The patient was driving home from work and became dizzy and lightheaded. Her heart felt like it was racing and she states, "I was scared that I was going to ." The patient has a history of panic attacks and states that this episode felt like a panic attack. She called someone to come and pick her up. She did not have an appetite last night and has not eaten much today either. She states that her heart is still racing. She notes cramping in her legs and states that she feels extremely anxious. She did not take her buspirone last night. She has not been drinking any liquids today. The patient denies abdominal pain and urinary symptoms. She states that just being in the ED makes her feel a lot calmer. She thinks that she is under too much pressure to return to work too quickly. She feels that she is not ready to return to work yet. Source of History: patient Onset: yesterday Position: other (global) Quality: other (anxiety) Timing: worsening Modifying Factors (Worsening): other (returning to work) Modifying Factors (Relieving): other (being in the hospital) Associated Symptoms: No abdominal pain, No urinary symptoms Note: Pt notes panic attack last night. She also reports leg cramping and rapid HR. Review of Systems All systems have been listed, reviewed, and are negative other than those previously mentioned. Please see Additional Medical History Sheet. Past Medical & Surgical Medical Problems: (1) HTN (hypertension) (2) Hypothyroidism (3) Nicotine dependence (4) Panic disorder (5) Schizoaffective disorder Surgical Problems: (1) Status post removal of thyroid nodule Social History Problems: (1) Unprotected sex Family History Diabetes mellitus FH: cancer FH: gallbladder disease Hypertension Social History Smoking Status: Former Smoker Alcohol Use: none Housing Status: lives with family Occupation Status: employed Current/Historical Medications Scheduled Buspirone Hcl (Buspirone Hcl), 5 MG PO QAM Buspirone Hcl (Buspirone Hcl), 5 MG PO DAILY@1400 Buspirone Hcl (Buspirone Hcl), 10 MG PO HS Calcium/Vitamin D (Os-Deven 500 Plus D), 1 TAB PO TID Hydroxyzine Hcl (Atarax), 25 MG PO Q4H Levothyroxine Sodium (Levothyroxine Sodium), 112 MCG PO DAILY Quetiapine Fumarate (Seroquel), 100 MG PO HS Venlafaxine Hcl (Effexor Extended Rel), 150 MG PO DAILY Allergies Coded Allergies: Sulfa Antibiotics (Verified Allergy, Intermediate, SWELLING & FLUSHING, ) Physical Exam Vital Signs Date Time Temp Pulse Resp B/P Pulse Ox O2 Delivery O2 Flow Rate FiO2 08/27/16 13:10 80 15 98/63 98 Room Air 89 109/86 90 108/89 08/27/16 12:29 75 08/27/16 12:16 99 Room Air 08/27/16 11:54 36.5 99 18 134/69 98 Room Air Physical Exam GENERAL: Patient awake, alert, oriented x 3. Patient is anxious appearing and tearful. Patient follows commands. Patient does not appear toxic. Patient is adequately hydrated and well-nourished. SKIN: No erythema, pallor, cyanosis or rash HEENT: Normal head, pupils equal, reactive to light and accommodation. Well healed thyroidectomy scar. Ears normal. Oral cavity and posterior pharynx appear normal. Neck: Without adenopathy, no neck vein distention. LUNGS: Clear to auscultation. No wheezes, no rales, no rhonchi. HEART: No murmurs. No gallops. No rubs ABDOMEN: No masses, no rebound, no hepatomegaly or splenomegaly. EXTREMITIES: No signs of trauma. No pedal or pretibial edema. No calf or thigh tenderness. NEUROLOGIC: Cranial nerves II-XII within normal limits. No gross motor sensory function deficits. PSYCHIATRIC: Patient is awake, alert, but somewhat distraught. Patient is not suicidal. Patient is anxious Medical Decision & Procedures Laboratory Results 08/27/16 10:20 08/27/16 10:20 Test 08/27/16 10:20 Red Blood Count 4.61 M/uL (4.2-5.4) Mean Corpuscular Volume 92.0 fL (80-100) Mean Corpuscular Hemoglobin 31.5 pg (25-34) Mean Corpuscular Hemoglobin Concent 34.2 g/dl (32-36) RDW Standard Deviation 42.8 fL (36.4-46.3) RDW Coefficient of Variation 12.6 % (11.5-14.5) Mean Platelet Volume 10.5 fL (7.4-10.4) Anion Gap 9.0 mmol/L (3-11) Est Creatinine Clear Calc Drug Dose 91.9 ml/min Estimated GFR () 115.4 Estimated GFR (Non- 99.5 BUN/Creatinine Ratio 8.4 (10-20) Calcium Level 7.7 mg/dl (8.5-10.1) Laboratory results as stated above per my review. ED Course 1244: Past medical records reviewed. The patient was evaluated in room C12B. A complete history and physical examination was performed. 1454: I reassessed the patient at this time. She is feeling better and resting comfortably. I discussed the results and treatment plan with the patient. I answered all pertaining questions that she had. She expressed understanding and verbalized agreement. The patient will be discharged home. Medical Decision Differential diagnoses includes metabolic disorder, anxiety, medication reaction , dehydration, orthostasis. Labs were evaluated. Please see above. The patient's on multiple psychiatric medications. I believe she should continue taken for now. Most likely her symptoms are related to the medications and their interaction. I would like her to continue taking these medications as prescribed. The patient will be off work for the next 3 days. If symptoms persist she will need to discuss changes with her psychiatrist. Impression Primary Impression: Medication reaction Additional Impression: Anxiety Scribe Attestation The scribe's documentation has been prepared under my direction and personally reviewed by me in its entirety. I confirm that the note above accurately reflects all work, treatment, procedures, and medical decision making performed by me. Departure Information Dispostion Home / Self-Care Referrals No Doctor, Assigned (PCP) Forms HOME CARE DOCUMENTATION FORM, IMPORTANT VISIT INFORMATION Patient Instructions My [facility] Additional Instructions Continue taking all of your current medications as prescribed. Follow-up with your psychiatrist within the next several days if symptoms persist. Off work for the next 3 days. Problem Qualifiers Primary Impression: Medication reaction Encounter type: initial encounter Qualified Codes: T88.7XXA - Unspecified adverse effect of drug or medicament, initial encounter
[2016-08-27] MEDS ORDERED: BUSP-8 PO (13:26)
[2016-08-27] MEDS ORDERED: HYDR-3124 PO (13:26)
[2016-08-27] MEDS ORDERED: BUSP5TAB59 PO ×2 (13:26)
[2016-08-27 15:15] VITALS: BP 105/80; PULSE 77; O2SAT 97
== END 2016-08-27 15:16 | disposition home or self-care (01) ==
LOC: C.EDB 11:50 → C.EDC 15:16
DX: T88.7XXA Unspecified adverse effect of drug or medicament, initial encounter (principal); X58.XXXA Exposure to other specified factors, initial encounter; F41.9 Anxiety disorder, unspecified; I10 Essential (primary) hypertension; E03.9 Hypothyroidism, unspecified; F20.9 Schizophrenia, unspecified; Z87.891 Personal history of nicotine dependence; Z79.899 Other long term (current) drug therapy; Z88.2 Allergy status to sulfonamides; Z83.3 Family history of diabetes mellitus; Z80.9 Family history of malignant neoplasm, unspecified; Z83.79 Family history of other diseases of the digestive system; Z82.49 Family history of ischemic heart disease and other diseases of the circulatory system